=== PATIENT | female | born 1945 | race Caucasian/White ===

== ENCOUNTER → 2020-02-26 | Outpatient (CLI) | payer OTHER ==
[~2020-02-26] VITALS: Ht 152.4 cm; Wt 70.3 kg
[~2020-02-26] MED LIST: CALTRATE-600 W1 EACH PO; CARBIDOPA-LEVO1 EAC8 PO; FISH OIL 1,0001 EAC9 PO; LISINOPRIL-HCT1 EAC1 PO; LORCET 5-325 M1 EACH PO; PREVACID30 MG PO; SIMVASTATIN40 MG PO; SUPER THERAVIT1 EACH PO; ZOLOFT 50 MG TA50 M1 PO
[2020-02-26 14:02] VITALS: BP 142/84
--- NOTE | 2020-02-26 14:25 | NUR ---
[facility] Assessment: 1. History of Osteoarthritis: FINGERS History of Rheumatoid Arthritis: Not Applicable 2. Height: 5 ft. 0 in. 152.4 cm. Weight: 155.0 lb. oz. 70.308 kg. Patient's BMI: 30.3 3. Vital Signs: BP: 142/84 Pulse: 78 Resp: 16 Temp: 02 Sat: 95 ECG Mon: 4. Pain Intensity: 9 5. Fall Risk: Dizziness: N Needs help standing or walking: N Fallen in the last 3 months: Y Fall risk comments: 6. Patient on Blood Thinner: None 7. History of Hypertension: Y 8. Opioid Therapy greater than 6 weeks: Y Opiate Contract Signed: 9. Risk Assessment Tool Provided: LOW-2 10. Functional Assessment Tool: 11. Recreational Drug Use: Never Drug Type: Tobacco Use: Never Smoker Tobacco Type: Amount or Packs/day: How Many Years: Alcohol Use: No Frequency: Quant:
== END | disposition home or self-care (01) ==
LOC: RAD 13:14 → PAIN 13:14
PROVIDERS: ATTEND Anesthesiology Pain Medicine
DX: M54.16 Radiculopathy, lumbar region (principal); G89.29 Other chronic pain; I10 Essential (primary) hypertension; F32.9 Major depressive disorder, single episode, unspecified; G20 Parkinson's disease; K21.9 Gastro-esophageal reflux disease without esophagitis; Z90.710 Acquired absence of both cervix and uterus; Z98.890 Other specified postprocedural states; Z79.899 Other long term (current) drug therapy